=== PATIENT | male | born 1950 | race Caucasian/White ===

== ENCOUNTER 2017-12-10 05:35 | Day surgery (SDC) | payer OTHER | END 2017-12-10 09:40 | disposition home or self-care (01) | LOC: AMB-ENDOS 05:35 | DX: K62.4 Stenosis of anus and rectum (principal); K57.32 Diverticulitis of large intestine without perforation or abscess without bleeding ==

== ENCOUNTER 2018-10-28 09:30 | Day surgery (SDC) | payer OTHER | END 2018-10-28 15:15 | disposition home or self-care (01) | LOC: AMB-ENDOS 09:30 | DX: K62.4 Stenosis of anus and rectum (principal) ==